=== PATIENT | female | born 1950 | race African-American/Black ===

== ENCOUNTER 2018-01-13 12:47 | Outpatient (CLI) | payer MEDICARE ==
--- NOTE | 2018-01-13 15:38 | PET ---
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 Exam is r equested for restaging. TECHNIQUE: PET scan with CT attenuation correction was performed from the base of the brain to the proximal thig hs following the intravenous administration of 13 millicuries of 15-fluorodeoxyglucose in the right a ntecubital fossa. Imaging was performed after an uptake interval of 57 minutes. COMPARISON: None. FINDINGS: No tanmay hypermetabolism is seen in the neck, chest, axillary, abdomen, pelvis or inguinal regions. N o hypermetabolic pulmonary nodules, liver, adrenal, or skeletal lesions are identified. There is physiologic uptake in the heart, GI and tracts and the visualized portions of the brain. The CT scan used for attenuation correction demonstrates no evidence for pleural effusions, or ascite s. There is extensive coronary artery disease present. IMPRESSION: No evidence of metastatic disease. 1. POS: MAHOGANY
--- NOTE | 2018-01-14 08:27 | PET ---
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 Exam is req uested for restaging. TECHNIQUE: PET scanning with CT attenuation correction was performed from the base of the brain through the prox imal thighs following the intravenous administration of 13 mCi [id number] in the right an tecubital fossa. Imaging was performed after an uptake interval of 57 minutes. COMPARISON: None. FINDINGS: No tanmay hypermetabolism is seen in the neck, chest, axillae, abdomen, pelvis, or inguinal regions. No hypermetabolic pulmonary nodules, liver, adrenal, or skeletal lesions are identified. There is There is physiologic uptake in the heart, GI and tracts, and the visualized portions of t he brain. The CT scan used for attenuation correction demonstrates no evidence of pleural effusions, ascites, o r extensive coronary artery disease is present. IMPRESSION: No evidence of metastatic disease. POS: MAHOGANY
== END 2018-01-13 12:48 | disposition home or self-care (01) ==
LOC: PET 12:47
PROVIDERS: ATTEND Obstetrics & Gynecology Gynecologic Oncology
DX: C53.9 Malignant neoplasm of cervix uteri, unspecified (principal)
CPT/HCPCS: 78815; A9552

== ENCOUNTER 2020-06-15 14:37 | Outpatient (CLI) | payer MEDICARE ==
--- NOTE | 2020-06-15 15:07 | BD ---
EXAM: DEXA bone density examination HISTORY: 69-year-old postmenopausal female for screening COMPARISON: None FINDINGS: L1--bone mineral density 0.760 g/sq cm; T score -2.1 L2--bone mineral density 0.783 g/sq cm; T score -2.2 L3--bone mineral density 0.764 g/sq cm; T score -2.9 L4--bone mineral density 1.028 g/sq cm; T score -0.3 Total L1-L4--bone mineral density 0.840 g/sq cm; T score -1.9 Left femoral neck--bone mineral density0.551; T score -2.7 Total proximal left femur--bone mineral density 0.806; T score -1.1 IMPRESSION: Osteoporosis.
--- NOTE | 2020-06-27 09:12 | MMO ---
Bilateral MAMMO Bilat Screen [facility]. CLINICAL HISTORY: Patient is 69 years old and is seen for screening. The patient has no family history of breast cancer. The patient has no personal history of cancer. VIEWS: The views performed were: bilateral craniocaudal with tomosynthesis and bilateral mediolateral oblique with tomosynthesis. FILMS COMPARED: The present examination has been compared to prior imaging studies performed at and at [facility] on 02/10/2017. This study has been interpreted with the assistance of computer-aided detection. MAMMOGRAM FINDINGS: There are scattered fibroglandular densities. Benign calcifications are noted bilaterally. There are no suspicious masses, suspicious calcifications, or new areas of architectural distortion. IMPRESSION: THERE IS NO MAMMOGRAPHIC EVIDENCE OF MALIGNANCY. A ROUTINE FOLLOW-UP MAMMOGRAM IN 1 YEAR IS RECOMMENDED. THE RESULTS OF THIS EXAM WERE SENT TO THE PATIENT. ACR BI-RADS Category 2 - Benign finding MAMMOGRAPHY NOTE: 1. A negative mammogram report should not delay a biopsy if a dominant of clinically suspicious mass is present. 2. Approximately 10% to 15% of breast cancers are not detected by mammography. 3. Adenosis and dense breasts may obscure an underlying neoplasm. Reported by: GERMAIN ISAAC MD Electonically Signed: [id number]
== END 2020-06-15 14:38 | disposition home or self-care (01) ==
LOC: BICMAMMO 14:37
PROVIDERS: ATTEND Nurse Practitioner Family
DX: Z12.31 Encounter for screening mammogram for malignant neoplasm of breast (principal); Z13.820 Encounter for screening for osteoporosis; Z78.0 Asymptomatic menopausal state; M81.0 Age-related osteoporosis without current pathological fracture
CPT/HCPCS: 77063; 77067; 77080

== ENCOUNTER 2023-12-25 13:25 | Outpatient (CLI) | payer MEDICARE | END 2023-12-25 13:26 | disposition home or self-care (01) | LOC: BICMAMMO 13:25 | PROVIDERS: ATTEND Family Medicine | DX: Z12.31 Encounter for screening mammogram for malignant neoplasm of breast (principal) | CPT/HCPCS: 77063; 77067 ==

== ENCOUNTER 2025-03-17 13:46 | Outpatient (CLI) | payer MEDICARE | END 2025-03-17 13:47 | disposition home or self-care (01) | LOC: DTY/OP 13:46 | PROVIDERS: ATTEND Family Medicine | DX: R73.9 Hyperglycemia, unspecified (principal) | CPT/HCPCS: 97802 ==